=== PATIENT | male | born 1950 | race Caucasian/White ===

== ENCOUNTER 2016-11-10 22:45 | Emergency (ER) | payer OTHER ==
[2016-11-11 00:57] LABS: HEMOGLOBIN 15.6 gm/dl (14.0-17.5); RED BLOOD COUNT 4.96 M/UL (4.20-5.50); WHITE BLOOD COUNT 21.2 K/UL (4.5-11.0)
[2016-11-11 01:16] LABS: BUN/CREATININE RATIO 19 (0-10)
== END 2016-11-11 08:35 ==
LOC: ER1 22:45
PROVIDERS: Family Medicine
DX: K86.3 Pseudocyst of pancreas (principal); R07.9 Chest pain, unspecified; E11.9 Type 2 diabetes mellitus without complications; I10 Essential (primary) hypertension; J44.9 Chronic obstructive pulmonary disease, unspecified; G89.29 Other chronic pain; Z87.891 Personal history of nicotine dependence; Z90.49 Acquired absence of other specified parts of digestive tract
CPT/HCPCS: 36415; 71010; 80053; 82550; 82553; 83690; 83874; 84484; 85025; 93005; 96374; 96375; 96376; 99285; J2270; J2405; J7050; Q9962

== ENCOUNTER → 2020-10-30 | Outpatient (CLI) | payer OTHER ==
[~2020-10-30] MED LIST: BENAZEPRIL-HCT1 EAC2 PO; COLACE 100MG C100 MG PO; DICYCLOMINE HCL20 MG PO; FENOFIBRATE160 MG PO; FLEXERIL 10 MG10 MG PO; GLUCOPHAGE500 MG PO; KEFLEX500 MG PO; NEURONTIN 300300 MG PO; OXYCODONE-ACET1 EACH PO; PROTONIX40 MG PO; SYMBICORT 80-41 INHA INH; ZOFRAN4 MG PO
== END ==
LOC: CT 10:43
DX: I10 Essential (primary) hypertension (principal); K40.90 Unilateral inguinal hernia, without obstruction or gangrene, not specified as recurrent; K86.2 Cyst of pancreas
CPT/HCPCS: 36415; 82565; 84520; Q9967

== ENCOUNTER → 2021-10-19 | Outpatient (CLI) | payer OTHER | LOC: CT 07:09 | DX: J44.9 Chronic obstructive pulmonary disease, unspecified (principal); R09.02 Hypoxemia | CPT/HCPCS: 71270; Q9967 ==